=== PATIENT | female | born 1965 | race Asian ===

== ENCOUNTER 2019-01-08 06:07 | Day surgery (SDC) | payer OTHER ==
[2019-01-08] MEDS ORDERED: MIDAZOLAM 1 MG/ML 2 ML INJ ×2 (08:43)
[2019-01-08] MEDS ORDERED: FENTAnyl 50 MCG/ML VIAL (08:43)
== END 2019-01-08 12:47 | disposition home or self-care (01) ==
LOC: GIL 06:07
DX: Z12.11 Encounter for screening for malignant neoplasm of colon (principal); K64.8 Other hemorrhoids; E11.9 Type 2 diabetes mellitus without complications; I10 Essential (primary) hypertension
CPT/HCPCS: 45378; 82962